=== PATIENT | male | born 1960 | race Caucasian/White ===

== ENCOUNTER → 2024-01-24 07:32 | Outpatient (REF) | payer OTHER, SELFPAY | LOC: EMG 07:32 | PROVIDERS: ATTENDING PHYSICIAN Orthopaedic Surgery; FAMILY PHYSICIAN Family Medicine | DX: M79.642 Pain in left hand (principal); M79.641 Pain in right hand; R20.0 Anesthesia of skin | CPT/HCPCS: 95886; 95911 ==

== ENCOUNTER 2025-05-23 06:15 | Day surgery (SDC) | payer BC, SELFPAY | END 2025-05-23 11:45 | disposition home or self-care (01) | LOC: GI 06:15 | PROVIDERS: ATTENDING PHYSICIAN Internal Medicine | DX: Z12.11 Encounter for screening for malignant neoplasm of colon (principal); D12.2 Benign neoplasm of ascending colon; K57.30 Diverticulosis of large intestine without perforation or abscess without bleeding; K62.89 Other specified diseases of anus and rectum; D12.8 Benign neoplasm of rectum; K64.8 Other hemorrhoids; Z86.0100 Personal history of colon polyps, unspecified | CPT/HCPCS: 45385; 45380; 88305; 88341; 88342 ==

== ENCOUNTER 2025-06-19 06:07 | Day surgery (SDC) | payer BC, SELFPAY ==
[2025-06-19 10:35] VITALS: BMI 29.9
[2025-06-19 10:50] VITALS: BP 168/93
[2025-06-19 11:00] VITALS: BMI 29.9
[2025-06-19 13:49] VITALS: BP 108/67
[2025-06-19 14:00] VITALS: BP 111/69
[2025-06-19 14:15] VITALS: BP 96/79
[2025-06-19 14:23] VITALS: BP 118/81
== END 2025-06-19 14:40 | disposition home or self-care (01) ==
LOC: SDS 06:07
PROVIDERS: ATTENDING PHYSICIAN Internal Medicine Gastroenterology
DX: D37.5 Neoplasm of uncertain behavior of rectum (principal); K64.0 First degree hemorrhoids; K57.30 Diverticulosis of large intestine without perforation or abscess without bleeding; K62.1 Rectal polyp; K62.89 Other specified diseases of anus and rectum; K25.9 Gastric ulcer, unspecified as acute or chronic, without hemorrhage or perforation; K22.10 Ulcer of esophagus without bleeding; K31.89 Other diseases of stomach and duodenum
CPT/HCPCS: 45349; 43239; 88305; 88341; 88342; 88365